=== PATIENT | male | born 1970 ===

== ENCOUNTER 2017-04-24 07:59 | Observation (INO) | payer MEDICAID, OTHER ==
[~2017-04-24] VITALS: Ht 172.7 cm; Wt 91.3 kg
[2017-04-24] MEDS ORDERED: CLONIDINE HCL 0.2 MG TAB PO ONE (08:30)
[2017-04-24 08:43] LABS: BASOPHILS % 0.5 % (0.0-1.0); EOSINOPHILS # (AUTO) 0.1 (0.0-0.4); EOSINOPHILS % 0.9 % (0.0-6.0); HEMATOCRIT 47.2 % (38.2-49.6); HEMOGLOBIN 16.4 g/dL (14.0-18.0); LYMPHOCYTES # (AUTO) 2.3 (1.0-3.2); LYMPHOCYTES % 34.1 % (18.0-39.1); MEAN CORPUSCULAR HEMOGLOBIN 32.1 pg (28-32); MEAN CORPUSCULAR HGB CONC 34.7 g/dL (31-35); MEAN CORPUSCULAR VOLUME 92.4 fL (81-99); MONOCYTES # (AUTO) 0.5 (0.2-0.8); MONOCYTES % 6.9 % (4.4-11.3); NEUTROPHILS # (AUTO) 3.8 (2.1-6.9); NEUTROPHILS % 57.3 % (38.7-80.0); PLATELET COUNT 194 x10e3/uL (140-360); RED BLOOD COUNT 5.11 x10e6/uL (4.3-5.7); RED CELL DISTRIBUTION WIDTH 11.6 % (11.7-14.4)
[2017-04-24 08:53] LABS: INR 0.91; PROTHROMBIN TIME 11.5 seconds (11.9-14.5)
[2017-04-24 08:54] LABS: PARTIAL THROMBOPLASTIN TIME 28.3 seconds (23.8-35.5)
[2017-04-24 08:59] LABS: ALANINE AMINOTRANSFERASE 28 IU/L (0-55); ALBUMIN 3.8 g/dL (3.5-5.0); ALBUMIN/GLOBULIN RATIO 0.9 (0.8-2.0); ALKALINE PHOSPHATASE 92 IU/L (40-150); BLOOD UREA NITROGEN 11 mg/dL (7-26); BUN/CREATININE RATIO 14 (6-25); CALCIUM 9.3 mg/dL (8.4-10.2); CARBON DIOXIDE 26 mmol/L (22-29); CHLORIDE 103 mmol/L (98-107); CREATINE KINASE 47 IU/L (30-200); EST GLOMERULAR FILTRATION RATE > 60 ML/MIN (60-); GLUCOSE 311 mg/dL (74-118); SODIUM 139 mmol/L (136-145)
--- NOTE | 2017-04-24 09:05 | Diagnostic Imaging Report ---
PROCEDURE: X-RAY CHEST, TWO VIEWS COMPARISON: None. INDICATIONS: POSSIBLE CVA FINDINGS: Lung volumes are low. No focal airspace consolidation, pleural effusion, or pneumothorax. Mildly tortuous thoracic aorta. Otherwise normal cardiomediastinal contour when accounting for degree of ventilatory effort. No pulmonary edema. No acute osseous abnormality. Degenerative disc changes of the lower thoracic and lumbar spine. CONCLUSION: Low lung volumes without acute cardiopulmonary abnormality. Dictated by: Deangelo Paz M.D. on 04/24/2017 at 9:05 Electronically approved by: Deangelo Paz M.D. on 04/24/2017 at 9:05
--- NOTE | 2017-04-24 09:23 | Diagnostic Imaging Report ---
EXAMINATION: Head CT HISTORY: Headache and double vision for the last week COMPARISON: None. TECHNIQUE: Multidetector axial images were obtained without contrast from the foramen magnum to the vertex . The images were reconstructed using brain and bone algorithms. Thin section brain images were reformatted into coronal and sagittal planes. Motion/streaking artifact limits the evaluation of the skull base and posterior cranial fossa. FINDINGS: Parenchyma: 1. Small focal hypodensity in the right frontal centrum semiovale/periventricular to the frontal horn may represent chronic microvascular ischemic changes, migraine related or perhaps associated to a demyelinating process, particularly in the setting of recent double vision. 2. Additional few scatter mostly bilateral frontal white matter hypodensities are likely nonspecific chronic microvascular ischemic changes, particularly if there is history of chronic hypertension, chronic renal disease and/or diabetes. 3. No mass or hemorrhage. No CT evidence of acute territorial vascular insult. Extra-axial spaces:No abnormal density. No extra-axial fluid collections Brain volume: Normal for age. Ventricles: No hydrocephalus or displacement. Arteries: No density suggestive of thrombus. Dural sinuses: No abnormal density. Extra-axial spaces: No abnormal density. Foramen magnum: No mass, Chiari malformation, or basilar invagination. Sella: No obvious mass. Paranasal/mastoid sinuses: Imaged portions unremarkable. Skull/Scalp: No lytic or blastic lesions. No fractures. IMPRESSION: 1. No acute intracranial hemorrhage or cortical infarcts. 2. Mild chronic microvascular ischemic changes. 3. Focal hypodensity in the right frontal centrum semiovale may represent chronic microvascular ischemic changes as well, less likely demyelinating process, if clinically indicated consider a brain MRI for further evaluation. Signed by: Dr. Daniela Chaves M.D. on 04/24/2017 9:19 AM
[2017-04-24] MEDS ORDERED: HYDROCODONE/APAP 5MG-325MG TAB PO ONE ×2 (09:30→10:15)
[2017-04-24] MEDS ORDERED: ASPIRIN 325 MG TAB PO SCH (10:45)
[2017-04-24] MEDS ORDERED: DEXTROSE 50% SYRINGE 50 ML IV PRN (10:45)
--- OUTSIDE RECORDS SUMMARY | 2017-04-24 10:59 | XMS REPORT ---
Author Author [facility] Address Unknown Phone Unavailable Care Team Providers Care Clerical Investigator Name Role Phone SAIDA PIKE Unavailable Unavailable Problems This patient has no known problems. Allergies, Adverse Reactions, Alerts This patient has no known allergies or adverse reactions. Medications This patient has no known medications. Results Test Description Test Time Test Comments Text Results Atomic Results Result Comments CHEST 2 VIEWS [place] [address] Patient Name: REJI PRATT MR #: [id number] : 1970 Age/Sex: 46/M Req #: [id number] Adm Physician: Ordered by: SAIDA PIKE MD Report #: [id number] Location: ER Room/Bed: Procedure: [id number] DX/CHEST 2 VIEWS Exam Date: 04/24/17 Exam Time: 0845 REPORT STATUS: Signed PROCEDURE: X-RAY CHEST, TWO VIEWS COMPARISON: None. INDICATIONS: POSSIBLE CVA FINDINGS: Lung volumes are low. No focal airspace consolidation, pleural effusion, or pneumothorax. Mildly tortuous thoracic aorta. Otherwise normal cardiomediastinal contour when accounting for degree of ventilatory effort. No pulmonary edema. No acute osseous abnormality. Degenerative disc changes of the lower thoracic and lumbar spine. CONCLUSION: Low lung volumes without acute cardiopulmonary abnormality. Dictated by: Matthew Bergman M.D. on 04/24/2017 at 9:05 Electronically approved by: Matthew Bergman M.D. on 04/24/2017 at 9:05 Dictated By: MATTHEW BERGMAN MD 4 Transcribed By: KEYLA on 04/24/17904 COPY TO: SAIDA PIKE MD CT BRAIN WO [place] [address] Patient Name: REJI PRATT MR #: [id number] : 1970 Age/Sex: 46/M Req #: [id number] Adm Physician: Ordered by: SAIDA PIKE MD Report #: [id number] Location: ER Room/Bed: Procedure: [id number] CT/CT BRAIN WO Exam Date: 04/24/17 Exam Time: 0850 REPORT STATUS: Signed EXAMINATION: Head CT HISTORY: Headache and double vision for the last week COMPARISON: None. TECHNIQUE: Multidetector axial images were obtained without contrast from the foramen magnum to the vertex . The images were reconstructed using brain and bone algorithms. Thin section brain images were reformatted into coronal and sagittal planes. Motion/streaking artifact limits the evaluation of the skull base and posterior cranial fossa. FINDINGS: Parenchyma: 1. Small focal hypodensity in the right frontal centrum semiovale/periventricular to the frontal horn may represent chronic microvascular ischemic changes, migraine related or perhaps associated to a demyelinating process, particularly in the setting of recent double vision. 2. Additional few scatter mostly bilateral frontal white matter hypodensities are likely nonspecific chronic microvascular ischemic changes, particularly if there is history of chronic hypertension, chronic renal disease and/or diabetes. 3. No mass or hemorrhage. No CT evidence of acute territorial vascular insult. Extra-axial spaces:No abnormal density. No extra-axial fluid collections Brain volume: Normal for age. Ventricles: No hydrocephalus or displacement. Arteries: No density suggestive of thrombus. Dural sinuses: No abnormal density. Extra-axial spaces: No abnormal density. Foramen magnum: No mass, Chiari malformation, or basilar invagination. Sella: No obvious mass. Paranasal/mastoid sinuses : Imaged portions unremarkable. Skull/Scalp: No lytic or blastic lesions. No fractures. IMPRESSION: 1. No acute intracranial hemorrhage or cortical infarcts. 2. Mild chronic microvascular ischemic changes. 3. Focal hypodensity in the right frontal centrum semiovale may represent chronic microvascular ischemic changes as well, less likely demyelinating process, if clinically indicated consider a brain MRI for further evaluation. Signed by: Dr. David Chaves M.D. on 04/24/2017 9:19 AM Dictated By: DAVID CHAVES MD 8 Transcribed By: MIRELA on 04/24/17918 COPY TO: SAIDA PIKE MD
[2017-04-24] MEDS ORDERED: SODIUM CHLORIDE FLUSH 10 ML SYR INJ PRN (11:00)
[2017-04-24] MEDS ORDERED: ONDANSETRON HCL INJ 2 MG/ML VIAL IV PRN (11:00)
[2017-04-24] MEDS ORDERED: ENOXAPARIN SOD INJ 40 MG/0.4 ML SYR SC SCH (11:00)
--- NOTE | 2017-04-24 11:15 | History and Physical ---
PRIMARY CARE PHYSICIAN: None CHIEF COMPLAINT: Blurred vision and headache. HISTORY OF PRESENT ILLNESS: This is a 46-year-old man with a history of TIA and continued cigarette use, now developing blurred vision and headache. He came to the hospital. Here he was found to have a blood pressure of 220/110. He is admitted for further evaluation and management. PAST MEDICAL HISTORY: TIA, cigarette abuse and hypertension. PAST SURGICAL HISTORY: Small-bowel obstruction, status post resection with partial resection with colostomy in 2007, status post reversal 5 years later, and also appendectomy. ALLERGIES: PER ELECTRONIC MEDICAL RECORDS. FAMILY HISTORY/SOCIAL HISTORY: The patient is . He has 1 children. No alcohol or illicits. He smokes half a pack of cigarettes per day. MEDICATIONS: Per electronic medical records. REVIEW OF SYSTEMS: Denies any dizziness or chest pain. PHYSICAL EXAMINATION VITAL SIGNS: Reviewed. GENERAL: A tired-appearing man resting in bed. HEENT: Anicteric. Pupils respond to light. No oral lesions. CARDIOVASCULAR: Normal S1 and S2. LUNGS: Moderate breath sounds. ABDOMEN: Soft, nontender and nondistended. EXTREMITIES: No edema or calf tenderness. NEUROLOGICAL: He is alert and oriented times 3. He moves all extremities. He has no motor deficits. He does have some vision deficits in the right periphery of the right eye on visual field testing. SKIN: Dry. PSYCHIATRIC: Flat affect. LABS: Reviewed. MEDICATIONS: Reviewed. ASSESSMENT AND PLAN: This is a 46-year-old man with: 1. Hypertensive encephalopathy: Will control his blood pressure and reassess. 2. Transient ischemic attack versus acute stroke: His symptoms could be secondary to his markedly elevated blood pressure. Imaging does show focal hypodensity in the right frontal central semi-ovale, which may represent chronic microvascular changes or some demyelinating process. Will obtain an MRI of the brain. Obtain lipid panel. 3. Obesity: Body mass index is 33.5. Will check hemoglobin A1c and lipid panel. 4. Cigarette abuse: I have counseled the patient on cessation today. Will put him on a nicotine patch. 5. Hyperglycemia: Glucose is 311. Likely, this patient does have diabetes. Will obtain a hemoglobin A1c right now, and will put sliding scale insulin on board. 6. Peripheral access. 7. Will screen for urinary tract infection. 8. Prophylaxis: Will use Lovenox and Pepcid. 9. Disposition: Will obtain an MRI of the brain. Will put the patient on aspirin and Lovenox, and control his blood pressure with medication regimen. Will start nicotine patch. Will get physical therapy on board. Job#: [id number] EDDI
[2017-04-24 11:36] VITALS: BP 120/80
[2017-04-24 11:42] VITALS: BP 120/80
[2017-04-24 11:47] VITALS: BP 120/80
[2017-04-24] MEDS ORDERED: LORAZEPAM INJ 2 MG/ML VIAL IV ONE (12:45)
[2017-04-24] MEDS ORDERED: HYDROMORPHONE 20MG/ NS 100ML IV ONE (12:45)
[2017-04-24] MEDS: LISINOPRIL 10 MG TAB PO SCH (12:52)
[2017-04-24] MEDS: NIFEDIPINE CR 30 MG TAB PO SCH ×2 (12:52→20:50)
[2017-04-24] MEDS: INSULIN REGULAR, HUMAN 100 UNIT/1 ML 3ML VIAL SQ SCH ×3 (12:53→20:51)
[2017-04-24] MEDS: HYDROMORPHONE 1MG/1ML INJ IV PRN ×2 (12:54→20:58)
[2017-04-24] MEDS ORDERED: HYDROMORPHONE 1MG/1ML INJ IV ONE (13:30)
--- NOTE | 2017-04-24 15:20 | Diagnostic Imaging Report ---
EXAMINATION: MRI of the brain without contrast. HISTORY: Severe headache, double vision, left eye disturbance, untreated hypertension COMPARISON: Head CT and 04/24/2017 TECHNIQUE: Sagittal T2; axial DWI, T2, FLAIR, T1-IR, T2 gradient echo; coronal FLAIR. IMAGE QUALITY: Motion artifact limits evaluation of most of the sequences.. FINDINGS: Parenchyma: 1. Mild juxtacortical FLAIR hyperintensity and restricted diffusion in the left medial/inferior occipital lobe (lingual gyrus ) without hemorrhagic component or significant mass effect at this time. 2. Additional ill-defined areas of FLAIR hyperintensity and restricted diffusion are seen around the left atrium/posterior body of the left lateral ventricle and left lateral margin of the splenium of the corpus callosum as well as the left posterior thalamus without significant mass effect. 3. Scatter and mildly confluent periventricular, esteban radiata and centrum semiovale white matter T2 and FLAIR hyperintense foci , most likely nonspecific chronic microvascular ischemic changes in this patient with uncontrolled hypertension. 4. No mass, hemorrhage, acute or chronic infarcts. Skull: Unremarkable. Vessels: Expected flow voids present in the major arteries and dural sinuses. Extra-axial spaces: No abnormal signal intensity or mass effect. Brain volume: Within normal limits for age. Ventricles: No hydrocephalus or displacement. Foramen magnum: Unremarkable. Sella: Unremarkable. Paranasal / mastoid sinuses: No significant inflammatory disease. IMPRESSION: 1. No acute intracranial hemorrhage. 2. Ill-defined FLAIR hyperintensity and restricted diffusion in the left occipital lobe and left posterior thalamus, which suggest a left ACID CUTTER vascular distribution, indicative of probably acute to subacute ischemic insult. The location of this finding likely explains the patient's visual symptoms. 3. Mild chronic microvascular ischemic changes. Comparison to prior studies is recommended. Signed by: Dr. Daniela Chaves M.D. on 04/24/2017 3:16 PM
[2017-04-24 15:32] VITALS: BP 110/78
[2017-04-24] MEDS: FAMOTIDINE 20 MG TAB PO SCH (16:22)
--- NOTE | 2017-04-24 18:58 | Consultation ---
DATE OF CONSULTATION: April 24, 2017 at 5:30 in the evening. NEUROLOGICAL CONSULTATION REASON FOR CONSULTATION: Stroke. This is a 46-year-old male with a 2-day history of having some visual disturbance that he cannot explain well, but there is some difficulty focusing, headaches on the left side of the head, and a little bit of trouble with steady gait. He denies any focal weakness, but he states he has for the last 2 days some numbness of the right hand. He denies any chest pain or palpitations. He has never had problem like this in the past. PAST MEDICAL HISTORY: Hypertension. PAST SURGICAL HISTORY: Partial colon resection and appendectomy. ALLERGIES: NO KNOWN DRUG ALLERGIES. SOCIAL HISTORY: He smokes 1/2 pack of cigarettes a day. He occasionally drinks. MEDICATIONS: He does not take medications. REVIEW OF SYSTEMS: All 12 steps negative except as described already. GENERAL PHYSICAL EXAMINATION VITAL SIGNS: Blood pressure 110/78, pulse 60, temperature 97.5, apparently in the emergency room it was extremely elevated. LUNGS: Clear to auscultation. HEART: Regular sinus rhythm with no murmurs. ABDOMEN: Soft and nontender. No organomegaly. MUSCULOSKELETAL: Lower extremities with no edema, no cyanosis, no clubbing. NEUROLOGIC: He is awake, alert, oriented x3. Speech is clear. Pupils are both equal and reactive. Extraocular movements were full. Visual ruffin were grossly normal. No facial weakness. Tongue protrudes midline. Palatal movement is normal. Motor power: The patient is able to elevate arms against gravity without any difficulty. Abduction of the arms 5/5. Flexion/extension of the arms 5/5. Dorsiflexion of the wrists 5/5. Hand roll coverer 5/5 bilaterally. Lower extremities: Straight leg raising 80 degrees bilaterally without discomfort. Flexion of the hips 5/5. Flexion/extension of the knees 5/5. Dorsiflexion of the ankle 5/5. Plantar flexion 5/5. Deep tendon reflexes: Triceps, biceps, radials 1+, knee jerk 2+, ankle jerk 1+, plantar stimulation down bilaterally. Coordination: [id number] was normal. Gait: Slow with no ataxia. HEAD: Normocephalic. NECK: Supple. Carotid pulsations were present bilaterally. There were no bruits. LABORATORY DATA: Comprehensive metabolic panel: Sodium 139, potassium 4, BUN 11, creatinine 0.80. Estimated GFR greater than 60. Glucose 314 and 219. Liver enzymes are negative. Cholesterol 237, quite elevated. Triglycerides 141. LDL cholesterol 149, quite elevated. HDL cholesterol is 60, within the normal range. MRI of the brain has been done. IMPRESSION 1. Hyperintense lesion in the left occipital lobe and left posterior thalamus which suggests posterior cerebral artery distribution. Most likely we are dealing with subacute stroke. 2. Chronic microvascular ischemic changes seen bilaterally. Carotid Doppler and echocardiogram pending. In the meantime, put the patient on Plavix 75 mg daily. Continue with aspirin 81 mg daily. PLAN: As soon as we have the above tests, then the patient can be discharged. He has not been taking his medication for his blood sugar and for his hypertension because of lack of economical means. He will be put in contact with the residential case manager for further advice. Job#: [id number]
[2017-04-24 20:00] VITALS: BP 153/87
[2017-04-25] VITALS: BP 129/80
[2017-04-25 00:01] VITALS: BP 153/87
[2017-04-25] MEDS: HYDROMORPHONE 1MG/1ML INJ IV PRN ×3 (00:41→11:42)
[2017-04-25 04:00] VITALS: BP 119/74
[2017-04-25] MEDS ORDERED: FAMOTIDINE20 MG PO (06:58)
[2017-04-25] MEDS ORDERED: LISINOPRIL10 MG PO (06:58)
[2017-04-25] MEDS ORDERED: NIFEDIPINE ER30 M1 PO (06:58)
[2017-04-25] MEDS ORDERED: PLAVIX75 MG PO (06:58)
[2017-04-25] MEDS ORDERED: NICODERM CQ1 EAC1 TOP (06:58)
[2017-04-25 08:00] VITALS: BP 123/84
[2017-04-25] MEDS: INSULIN REGULAR, HUMAN 100 UNIT/1 ML 3ML VIAL SQ SCH ×2 (08:00→11:30)
[2017-04-25] MEDS: FAMOTIDINE 20 MG TAB PO SCH (08:13)
[2017-04-25 08:44] VITALS: BP 123/84
[2017-04-25] MEDS ORDERED: NICOTINE 14 MG/EA PATCH TOP SCH (09:00)
[2017-04-25] MEDS ORDERED: ASPIRIN 81 MG ENTERIC COATED PO SCH (09:00)
[2017-04-25] MEDS ORDERED: CLOPIDOGREL BISULFATE 75 MG TAB PO SCH (09:00)
[2017-04-25] MEDS ORDERED: ASPIRIN 325 MG TAB PO SCH (09:00)
[2017-04-25] MEDS: NIFEDIPINE CR 30 MG TAB PO SCH (09:31)
[2017-04-25] MEDS: LISINOPRIL 10 MG TAB PO SCH (09:31)
[2017-04-25 12:37] VITALS: BP 139/88
== END 2017-04-25 13:51 | disposition home or self-care (01) ==
LOC: ER 07:59 → IMCU 10:57
PROVIDERS: ADMIT Internal Medicine; ATTEND Internal Medicine
DX: I66.22 Occlusion and stenosis of left posterior cerebral artery (principal); I67.4 Hypertensive encephalopathy; E66.9 Obesity, unspecified; Z68.33 Body mass index [BMI] 33.0-33.9, adult; Z72.0 Tobacco use; Z86.73 Personal history of transient ischemic attack (TIA), and cerebral infarction without residual deficits; I10 Essential (primary) hypertension; R73.9 Hyperglycemia, unspecified; T46.5X6A Underdosing of other antihypertensive drugs, initial encounter; T38.3X6A Underdosing of insulin and oral hypoglycemic [antidiabetic] drugs, initial encounter; Z91.120 Patient's intentional underdosing of medication regimen due to financial hardship
CPT/HCPCS: 36415 ×2; 70450; 70551; 71046; 80053; 80061; 82550; 82553; 82948 ×2; 83036; 84484; 85025; 85610; 85730; 93005; 93306; 93880; 96372; 96376; 97161; 99284; G0378 ×2; J1170 ×2; J1650; J2060

== ENCOUNTER 2017-04-30 17:11 | Emergency (ER) | payer SELFPAY ==
[~2017-04-30] VITALS: Ht 172.7 cm; Wt 91.2 kg
[~2017-04-30 17:11] MED LIST: FAMOTIDINE20 MG PO; LISINOPRIL10 MG PO; NICODERM CQ1 EAC1 TOP; NIFEDIPINE ER30 M1 PO; PLAVIX75 MG PO
--- OUTSIDE RECORDS SUMMARY | 2017-04-30 17:15 | XMS REPORT | Continuity of Care Document ---
Author Author [facility] Organization [facility] Address [address] [place] [address] Phone Unavailable Care Team Providers Care Chicken Buyer Name Role Phone NO, PCP PCP Unavailable Insurance Providers Guarantor Reji Arias Address [address] [place] [address] Email NONE Payer Workers Comp Policy Number [id number] Subscriber's Name Reji Arias Relationship 20 [employer] Group Name [employer] Advance Directives Directive Response Recorded Date/Time Does the patient have an advance directive? No 04/24/17 11:43am If yes, is advance directive on file with [facility]? No 04/24/17 11:43am If not on file with [facility] will patient provide a copy? No 04/24/17 11:43am Do you have a Directive to Physician? No 04/24/17 8:55am Do you have a Medical Power of Patient Portal Representative? No 04/24/17 8:55am Do you have an out of hospital Do Not Resuscitate Order? No 04/24/17 8:55am Do you have any special needs we should be aware of? No 04/24/17 8:55am Do you have a support person here with you today? Yes 04/24/17 8:55am Did patient receive Notice of Privacy Practices? Yes 04/24/17 8:55am Did patient receive patient rights and responsibilities? Yes 04/24/17 8:55am Problems Medical Problem Onset Date Status Uncontrolled hypertension Unknown Medications Current Home Medications Medication Dose Units Route Directions Days Qty Instructions Start Date Clopidogrel Bisulfate (Plavix) 75 Mg Tablet 75 Mg Oral Daily 30 Days 04/25/17 Famotidine 20 Mg Tab 20 Mg Oral Twice Daily Before Meals 30 Days Lisinopril 10 Mg Tablet 5 Mg Oral Daily 30 Days 04/25/17 Nicotine (Nicoderm Cq) 1 Each Patch.td24 14 Mg Topically Daily 30 Days 04/25/17 Nifedipine (Nifedipine Er) 30 Mg Tab.er.24 30 Mg Oral Every 12 Hours 30 Days 04/25/17 Social History Social History Problem Response Recorded Date/Time Onset Date Status Hx Psychiatric Problems No 04/24/2017 11:43am Not Applicable Not Applicable Hx Eating Disorder No 04/24/2017 11:43am Not Applicable Not Applicable Hx Substance Use Disorder No 04/24/2017 11:43am Not Applicable Not Applicable Hx Depression No 04/24/2017 11:43am Not Applicable Not Applicable Hx Alcohol Use Y - OCCASIONAL 04/24/2017 11:43am Not Applicable Not Applicable Hx Substance Use Treatment No 04/24/2017 11:43am Not Applicable Not Applicable Hx Physical Abuse No 04/24/2017 11:43am Not Applicable Not Applicable Smoking Status Start Date Stop Date Current every day smoker Hospital Discharge Instructions No hospital discharge instruction information available. Plan of Care Discharge Date 04/25/17 1:51pm Disposition HOME, SELF-CARE Instructions/Education Provided Headache Prescriptions See Medication Section Referrals ARACELI ROSENBERG MD (Internal Medicine) Order Date: 5-7 Days Entered Date: 04/25/2017 6:59am Address: [address] [place] [id number] ZABRINA BOYD MD (Neurology) Order Date: 2 Weeks Entered Date: 04/25/2017 6:59am Address: [address] [place] [phone] Additional Instructions/Education DIABETIC CARDIAC DIET, ACTIVITY TOLERATE Functional Status Query Response Date Recorded FUNCTIONAL STATUS . April 24, 2017 2:00pm Assistive Devices None April 24, 2017 11:47am Ambulation Ability Independent April 24, 2017 11:47am Toileting Ability Independent April 25, 2017 9:18am Allergies, Adverse Reactions, Alerts Allergen Type Severity Reaction Status Last Updated Aspirin Allergy Mild SWELLING Active 04/24/17 Immunizations No immunization information available. Vital Signs Acute Vital Signs Vital Response Date/Time Temperature (Fahrenheit) 96.0 degrees F (97.6 - 99.5) 04/25/2017 12:37pm Pulse Pulse Rate (adult) 73 bpm (60 - 90) 04/25/2017 12:37pm Respiratory Rate 18 bpm (12 - 24) 04/25/2017 12:37pm Blood Pressure 139/88 mm Hg 04/25/2017 12:37pm Height 5 ft 8 in 04/24/2017 8:03am Weight 201.25 lb 04/25/2017 8:50am Body Mass Index 30.6 kg/m^2 04/25/2017 8:50am Results Laboratory Results Test Name Result Units Flags Reference Collection Date/Time Result Date/ Time Comments White Blood Count 6.63 x10e3/uL 4.8-10.8 04/24/2017 8:20am 04/24/2017 8 :49am Red Blood Count 5.11 x10e6/uL 4.3-5.7 04/24/2017 8:20am 04/24/2017 8: 49am Hemoglobin 16.4 g/dL 14.0-18.0 04/24/2017 8:20am 04/24/2017 8:49am Hematocrit 47.2 % 38.2-49.6 04/24/2017 8:2004/24/2017 8:49am Mean Corpuscular Volume 92.4 fL 81-99 04/24/2017 8:2004/24/2017 8: 49am Mean Corpuscular Hemoglobin 32.1 pg H 28-32 04/24/2017 8:20am 2017 8:49am Mean Corpuscular Hemoglobin Concent 34.7 g/dL 31-35 04/24/2017 8:20am 04/24/2017 8:49am Red Cell Distribution Width 11.6 % L 11.7-14.4 04/24/2017 8:20am 2017 8:49am Platelet Count 194 x10e3/uL 140-360 04/24/2017 8:20am 04/24/2017 8: 49am Neutrophils (%) (Auto) 57.3 % 38.7-80.0 04/24/2017 8:04/24/2017 8: 49am Lymphocytes (%) (Auto) 34.1 % 18.0-39.1 04/24/2017 8:04/24/2017 8: 49am Monocytes (%) (Auto) 6.9 % 4.4-11.3 04/24/2017 8:04/24/2017 8: 49am Eosinophils (%) (Auto) 0.9 % 0.0-6.0 04/24/2017 8:04/24/2017 8: 49am Basophils (%) (Auto) 0.5 % 0.0-1.0 04/24/2017 8:04/24/2017 8:49am IM GRANULOCYTES % 0.3 % 0.0-1.0 04/24/2017 8:04/24/2017 8:49am Neutrophils # (Auto) 3.8 2.1-6.9 04/24/2017 8:04/24/2017 8:49am Lymphocytes # (Auto) 2.3 1.0-3.2 04/24/2017 8:04/24/2017 8:49am Monocytes # (Auto) 0.5 0.2-0.8 04/24/2017 8:04/24/2017 8:49am Eosinophils # (Auto) 0.1 0.0-0.4 04/24/2017 8:04/24/2017 8:49am Basophils # (Auto) 0.0 0.0-0.1 04/24/2017 8:04/24/2017 8:49am Absolute Immature Granulocyte (auto 0.02 x10e3/uL 0-0.1 04/24/2017 8: 04/24/2017 8:49am Prothrombin Time 11.5 seconds L 11.9-14.5 04/24/2017 8:04/24/2017 9 :00am Prothromb Time International Ratio 0.91 04/24/2017 8:2017 9:00am Oral Anticoagulant Therapy INR Values: 1. Low Intensity Therapy 1.5 - 2.0 2. Moderate Intensity Therapy 2.0 - 3.0 3. High Intensity Therapy(1) 2.5 - 3.5 4. High Intensity Therapy(2) 3.0 - 4.0 5. Panic Value INR > 5.0 Activated Partial Thromboplast Time 28.3 seconds 23.8-35.5 04/24/2017 8: 04/24/2017 9:00am Sodium Level 139 mmol/L 136-145 04/24/2017 8:04/24/2017 9:28am Potassium Level 4.0 mmol/L 3.5-5.1 04/24/2017 8:04/24/2017 9:28am Chloride Level 103 mmol/L 98-107 04/24/2017 8:04/24/2017 9:28am Carbon Dioxide Level 26 mmol/L 22-04/24/2017 8:04/24/2017 9: 28am Anion Gap 14.0 mmol/L 8-04/24/2017 8:2004/24/2017 9:28am Blood Urea Nitrogen 11 mg/dL 7-04/24/2017 8:04/24/2017 9:28am Creatinine 0.80 mg/dL 0.72-1.25 04/24/2017 8:04/24/2017 9:28am BUN/Creatinine Ratio 14 6-25 04/24/2017 8:04/24/2017 9:28am Estimat Glomerular Filtration Rate > 60 ML/MIN 60- 04/24/2017 8: 9:28am Ranges were taken from the National Kidney Disease Education Program and the National Kid[employer] Foundation literature. Reference ranges: 60 or greater: Normal 16-59 (for 3 consecutive months): Chronic kidney disease 15 or less: Kidney failure Glucose Level 311 mg/dL H 74-118 04/24/2017 8:2004/24/2017 9:28am Calcium Level 9.3 mg/dL 8.4-10.2 04/24/2017 8:04/24/2017 9:28am Bedside Glucose 281 mg/dL H 70-120 04/25/2017 11:2004/25/2017 11: 38am Meter ID: [id number] Hemoglobin A1c Percent 11.2 % H 4.0-7.0 04/24/2017 8:04/24/2017 1: 40pm Total Bilirubin 0.9 mg/dL 0.2-1.2 04/24/2017 8:04/24/2017 9:28am Aspartate Amino Transf (AST/SGOT) 25 IU/L 5-34 04/24/2017 8:2017 9:28am Alanine Aminotransferase (ALT/SGPT) 28 IU/L 0-55 04/24/2017 8: 9:28am Total Protein 8.1 g/dL 6.5-8.1 04/24/2017 8:04/24/2017 9:28am Albumin 3.8 g/dL 3.5-5.0 04/24/2017 8:04/24/2017 9:28am Globulin 4.3 g/dL H 2.3-3.5 04/24/2017 8:04/24/2017 9:28am Albumin/Globulin Ratio 0.9 0.8-2.0 04/24/2017 8:04/24/2017 9: 28am Alkaline Phosphatase 92 IU/L 40-150 04/24/2017 8:04/24/2017 9: 28am Triglycerides Level 141 MG/DL 0-149 04/24/2017 8:04/24/2017 1: 40pm Cholesterol Level 237 MD/DL H 0-199 04/24/2017 8:04/24/2017 1:40pm Less than 200 mg/dL Low Risk 201 - 239 mg/dL Borderline Risk 240 mg/dl and greater High Risk LDL Cholesterol 149 MG/DL H 60-130 04/24/2017 8:04/24/2017 1:40pm HDL Cholesterol 60 MG/DL 40-60 04/24/2017 8:04/24/2017 1:40pm Cholesterol/HDL Ratio 4.0 3.9-4.7 04/24/2017 8:04/24/2017 1: 40pm Creatine Kinase 47 IU/L 30-200 04/24/2017 8:04/24/2017 9:28am Creatine Kinase MB 0.80 ng/mL 0.00-5.00 04/24/2017 8:04/24/2017 10 :29am Troponin I 0.006 ng/mL 0-0.300 04/24/2017 8:20am 04/24/2017 10:29am Procedures Procedure Status Date Provider(s) Computed tomography of brain without radiopaque contrast Active 04/24/17 SAIDA PIKE MD X-ray of chest, two views Active 04/24/17 SAIDA PIKE MD Magnetic resonance imaging of brain without contrast Active 04/24/17 ARACELI ROSENBERG MD Encounters Encounter Location Arrival/Admit Date Discharge/Depart Date Attending Provider Discharged Inpatient (obs) [facility] 04/24/17 10:57am 1:51pm ARACELI ROSENBERG MD
== END 2017-04-30 18:45 | disposition left against medical advice (07) ==
LOC: ER 17:11
DX: Z53.21 Procedure and treatment not carried out due to patient leaving prior to being seen by health care provider (principal)

== ENCOUNTER 2017-05-13 18:57 | Emergency (ER) | payer SELFPAY ==
[~2017-05-13] VITALS: Ht 172.7 cm; Wt 91.2 kg
--- OUTSIDE RECORDS SUMMARY | 2017-05-13 18:59 | XMS REPORT | Continuity of Care Document ---
Author Author [facility] Organization [facility] Address [address] [place] [address] Phone Unavailable Care Team Providers Care Special Education Assistant Name Role Phone NO, PCP PCP Unavailable Insurance Providers Guarantor Reji Arias Address [address] [place] [address] Email NONE Payer Medicaid Pending Subscriber's Name Reji Arias Advance Directives Directive Response Recorded Date/Time Does the patient have an advance directive? No 04/24/17 11:43am If yes, is advance directive on file with [facility]? No 04/24/17 11:43am If not on file with [facility] will patient provide a copy? No 04/24/17 11:43am Problems Medical Problem Onset Date Status Uncontrolled [...] No 04/24/2017 11:43am Not Applicable Not Applicable Hospital Discharge Instructions No hospital discharge instruction information available. Plan of Care Discharge Date 04/30/17 6:45pm Disposition ELOPED Condition at Discharge Stable Forms Provided Work/School Excuse Prescriptions See Medication Section Functional Status No functional status information available. Allergies, Adverse Reactions, Alerts Allergen Type Severity [...] 04/25/2017 12:37pm Height 5 ft 8 in 04/30/2017 5:29pm Weight 201 lb 04/30/2017 5:29pm Body Mass Index 30.6 kg/m^2 04/30/2017 5:29pm Results Laboratory Results Test Name Result Units Flags Reference Collection Date/Time Result Date/ Time Comments White Blood Count 6.63 x10e3/uL 4.8-10.8 04/24/2017 8:20am 04/24/2017 8 :49am Red Blood Count 5.11 x10e6/uL 4.3-5.7 04/24/2017 8:20am 04/24/2017 8: 49am Hemoglobin 16.4 g/dL 14.0-18.0 04/24/2017 8:20am 04/24/2017 8:49am Hematocrit 47.2 % 38.2-49.6 04/24/2017 8:20am 04/24/2017 8:49am Mean Corpuscular Volume 92.4 fL 81-99 04/24/2017 8:20am 04/24/2017 8: 49am Mean Corpuscular Hemoglobin 32.1 pg H 28-32 04/24/2017 8:2017 8:49am Mean Corpuscular Hemoglobin Concent 34.7 g/dL 31-35 04/24/2017 8:04/24/2017 8:49am Red Cell Distribution Width 11.6 % L 11.7-14.4 04/24/2017 8:2017 8:49am Platelet Count 194 x10e3/uL 140-360 04/24/2017 8:04/24/2017 8: 49am Neutrophils (%) (Auto) 57.3 % [...] Granulocyte (auto 0.02 x10e3/uL 0-0.1 04/24/2017 8: 2004/24/2017 8:49am Prothrombin Time 11.5 seconds L 11.9-14.5 04/24/2017 8:2004/24/2017 9 :00am Prothromb Time International Ratio 0.91 04/24/2017 8:202017 9:00am Oral Anticoagulant Therapy INR Values: 1. Low Intensity Therapy 1.5 - 2.0 2. Moderate Intensity Therapy 2.0 - 3.0 3. High Intensity Therapy(1) 2.5 - 3.5 4. High Intensity Therapy(2) 3.0 - 4.0 5. Panic Value INR > 5.0 Activated Partial Thromboplast Time 28.3 seconds 23.8-35.5 04/24/2017 8: 2004/24/2017 9:00am Sodium Level 139 mmol/L 136-145 04/24/2017 8:2004/24/2017 9:28am Potassium Level 4.0 mmol/L 3.5-5.1 04/24/2017 8:2004/24/2017 9:28am Chloride Level 103 mmol/L 98-107 04/24/2017 8:2004/24/2017 9:28am Carbon Dioxide Level 26 mmol/L 22-04/24/2017 8:2004/24/2017 9: 28am Anion Gap 14.0 mmol/L 8-16 04/24/2017 8:2004/24/2017 9:28am Blood Urea Nitrogen 11 mg/dL 7-04/24/2017 8:04/24/2017 9:28am Creatinine 0.80 mg/dL 0.72-1.25 04/24/2017 8:2004/24/2017 9:28am BUN/Creatinine Ratio 14 6-25 04/24/2017 8:2004/24/2017 9:28am Estimat Glomerular Filtration Rate > 60 ML/MIN 60- 04/24/2017 8:20 9:28am Ranges were taken from the National Kidney Disease Education Program and the [employer] literature. Reference ranges: 60 or greater: Normal 16-59 (for 3 consecutive months): Chronic kidney disease 15 or less: Kidney failure Glucose Level 311 mg/dL H 74-118 04/24/2017 8:04/24/2017 9:28am Calcium Level 9.3 mg/dL 8.4-10.2 04/24/2017 8:04/24/2017 9:28am Bedside Glucose 281 mg/dL H 70-120 04/25/2017 11:04/25/2017 11: 38am Meter ID: [id number] Hemoglobin A1c Percent 11.2 % H 4.0-7.0 [...] 1:40pm HDL Cholesterol 60 MG/DL 40-60 04/24/2017 8:20am 04/24/2017 1:40pm Cholesterol/HDL Ratio 4.0 3.9-4.7 04/24/2017 8:20am 04/24/2017 1: 40pm Creatine Kinase 47 IU/L 30-200 04/24/2017 8:20am 04/24/2017 9:28am Creatine Kinase MB 0.80 ng/mL 0.00-5.00 04/24/2017 8:20am 04/24/2017 10 :29am Troponin I 0.006 ng/mL 0-0.300 04/24/2017 8:20am 04/24/2017 10:29am Procedures Procedure Status Date Provider(s) Computed tomography of brain without radiopaque contrast Active 04/24/17 SAIDA PIKE MD X-ray of chest, two views Active 04/24/17 SAIDA PIKE MD Magnetic resonance imaging of brain without contrast Active 04/24/17 ARACELI ROSENBERG MD Computed tomography of brain without radiopaque contrast Active 04/30/17 LYNSEY DUQUE MD Encounters Encounter Location Arrival/Admit Date Discharge/Depart Date Attending Provider Departed Emergency Room [facility] 04/30/17 5:11pm 6:45pm LYNSEY DUQUE MD Discharged Inpatient (obs) [facility] 04/24/17 10:57am 1:51pm ARACELI ROSENBERG MD
[2017-05-13] MEDS ORDERED: HYDROCODONE/APAP 10MG-325MG TAB PO ONE (19:15)
[2017-05-13] MEDS ORDERED: KETOROLAC TROMETHAMINE 30 MG/ML VIAL IV STA (20:34)
[2017-05-13 20:38] LABS: BASOPHILS % 0.3 % (0.0-1.0); EOSINOPHILS # (AUTO) 0.1 (0.0-0.4); EOSINOPHILS % 0.9 % (0.0-6.0); HEMATOCRIT 44.4 % (38.2-49.6); LYMPHOCYTES # (AUTO) 3.4 (1.0-3.2); LYMPHOCYTES % 24.4 % (18.0-39.1); MEAN CORPUSCULAR HEMOGLOBIN 32.4 pg (28-32); MEAN CORPUSCULAR VOLUME 89.9 fL (81-99); NEUTROPHILS # (AUTO) 9.2 (2.1-6.9); PLATELET COUNT 242 x10e3/uL (140-360); RED BLOOD COUNT 4.94 x10e6/uL (4.3-5.7); RED CELL DISTRIBUTION WIDTH 11.4 % (11.7-14.4)
[2017-05-13 20:50] LABS: ALANINE AMINOTRANSFERASE 16 IU/L (0-55); ALBUMIN 3.8 g/dL (3.5-5.0); ALBUMIN/GLOBULIN RATIO 0.8 (0.8-2.0); ALKALINE PHOSPHATASE 94 IU/L (40-150); BLOOD UREA NITROGEN 7 mg/dL (7-26); BUN/CREATININE RATIO 9 (6-25); CALCIUM 10.3 mg/dL (8.4-10.2); CARBON DIOXIDE 27 mmol/L (22-29); CHLORIDE 100 mmol/L (98-107); CREATINE KINASE 41 IU/L (30-200); CREATININE, SERUM 0.76 mg/dL (0.72-1.25); EST GLOMERULAR FILTRATION RATE > 60 ML/MIN (60-); GLUCOSE 220 mg/dL (74-118); SODIUM 140 mmol/L (136-145)
--- NOTE | 2017-05-16 09:08 | Discharge Summary ---
PRINCIPAL DIAGNOSES 1. Hypertensive encephalopathy. 2. Transient ischemic attack. 3. Obesity, body mass index 33.5. 4. Cigarette abuse. 5. Hyperglycemia with hemoglobin A1c 11.2, likely representing diabetes and low-density lipoprotein of 149. SECONDARY DIAGNOSIS: Cigarette abuse. CHIEF COMPLAINT: Blurred vision and headache. HISTORY OF PRESENT ILLNESS: A 46-year-old man developing blurred vision and headache. Please refer to the H and P for further details. HOSPITAL COURSE: The patient was found to have hypertensive encephalopathy. Blood pressure treated with medication regimen. TIA, treated and symptoms improved with blood pressure control. Lipid panel was obtained. Patient had obesity, BMI 33.5, and hyperglycemia, hemoglobin A1c was 11.2. Patient has diabetes. Patient received physical therapy. Patient improved and subsequently transitioned out of the hospital. Patient was also evaluated by neurology, Dr. Nelson who assisted in management. Patient was started on Plavix 75 mg daily as well as aspirin 81 mg daily. DISCHARGE MEDICATIONS: Per electronic medical record. FOLLOWUP: With primary care doctor in [address]. Nelson in 2 weeks. ARACELI ROSENBERG MD Job#: [id number] CF
== END 2017-05-13 21:40 | disposition home or self-care (01) ==
LOC: ER 18:57
DX: M79.662 Pain in left lower leg (principal); M79.661 Pain in right lower leg; I10 Essential (primary) hypertension; E11.9 Type 2 diabetes mellitus without complications; Z86.73 Personal history of transient ischemic attack (TIA), and cerebral infarction without residual deficits
CPT/HCPCS: 36415; 80053; 82550; 82553; 84484; 85025; 93970; 99284; J1885